=== PATIENT | female | born 1975 | race Caucasian/White ===

== ENCOUNTER → 2016-03-30 | Outpatient (REF) | payer OTHER ==
[2016-03-30 16:49] LABS: PROGESTERONE < 0.2 NG/ML
[2016-03-30 16:50] LABS: ESTRADIOL < 19.0 PG/ML; LUTEINIZING HORMONE 3.1 mIU/mL; MEAN CORPUSCULAR HEMOGLOBIN 33.8 pg (27.0-33.0); MEAN CORPUSCULAR VOLUME 99.5 fl (80.0-96.0); RED CELL DISTRIBUTION WIDTH 11.3 % (11.5-14.5); VITAMIN B12 LEVEL 1207 PG/ML (247-911)
[2016-03-30 16:51] LABS: FOLATE > 24.0 NG/ML (>5.4); FOLLICLE STIMULATING HORMONE 5.1 mIU/mL
[2016-03-30 16:52] LABS: ALBUMIN 3.9 GM/DL (3.2-5.2); ALBUMIN/GLOBULIN RATIO 1.15 (1.00-1.93); ALKALINE PHOSPHATASE 87 U/L (45-117); ALT/SGPT 31 U/L (12-78); ANION GAP 7 MEQ/L (8-16); AST/SGOT 16 U/L (15-37); BILIRUBIN,TOTAL 0.4 MG/DL (0.2-1.0); BLOOD UREA NITROGEN 10 MG/DL (7-18); CALCIUM LEVEL 8.7 MG/DL (8.5-10.1); CARBON DIOXIDE LEVEL 27 MEQ/L (21-32); CHLORIDE LEVEL 107 MEQ/L (98-107); CREATININE FOR GFR 0.65 MG/DL (0.55-1.02); GLOMERULAR FILTRATION RATE > 60.0 (>60); GLUCOSE, FASTING 81 MG/DL (70-105); POTASSIUM SERUM 4.7 MEQ/L (3.5-5.1); SODIUM LEVEL 141 MEQ/L (136-145); TOTAL PROTEIN 7.3 GM/DL (6.4-8.2)
== END | disposition home or self-care (01) ==
LOC: M SFHCLERA 10:36
PROVIDERS: ATTEND Physician Assistant
DX: Z98.890 Other specified postprocedural states (principal); E34.9 Endocrine disorder, unspecified; F41.9 Anxiety disorder, unspecified

== ENCOUNTER → 2016-06-10 | Outpatient (REF) | payer OTHER | LOC: M SFHCLERA 14:07 | PROVIDERS: ATTEND Physician Assistant | DX: J02.9 Acute pharyngitis, unspecified (principal) ==

== ENCOUNTER → 2016-07-13 | Outpatient (REF) | payer OTHER ==
[2016-07-13 19:27] LABS: ALBUMIN 3.5 GM/DL (3.2-5.2); ALBUMIN/GLOBULIN RATIO 1.09 (1.00-1.93); ALKALINE PHOSPHATASE 74 U/L (45-117); ALT/SGPT 21 U/L (12-78); ANION GAP 9 MEQ/L (8-16); AST/SGOT 12 U/L (15-37); BILIRUBIN,TOTAL 0.2 MG/DL (0.2-1.0); BLOOD UREA NITROGEN 16 MG/DL (7-18); CALCIUM LEVEL 8.3 MG/DL (8.5-10.1); CARBON DIOXIDE LEVEL 26 MEQ/L (21-32); CHLORIDE LEVEL 104 MEQ/L (98-107); CREATININE FOR GFR 0.57 MG/DL (0.55-1.02); GLOMERULAR FILTRATION RATE > 60.0 (>60); GLUCOSE, FASTING 82 MG/DL (70-105); POTASSIUM SERUM 4.4 MEQ/L (3.5-5.1); SODIUM LEVEL 139 MEQ/L (136-145); TOTAL PROTEIN 6.7 GM/DL (6.4-8.2)
== END ==
LOC: M LABNEURO 17:01
PROVIDERS: ATTEND Psychiatry & Neurology Neurology
DX: R51 Headache (principal)

== ENCOUNTER → 2016-08-06 | Outpatient (REF) | payer OTHER | LOC: M SFHCWAGY 16:25 | PROVIDERS: ATTEND Nurse Practitioner Women's Health | DX: Z12.4 Encounter for screening for malignant neoplasm of cervix (principal) ==

== ENCOUNTER → 2016-10-10 | Outpatient (REF) | payer OTHER | LOC: M SFHCLERA 16:57 | PROVIDERS: ATTEND Physician Assistant | DX: N39.0 Urinary tract infection, site not specified (principal) ==

== ENCOUNTER → 2017-08-19 | Outpatient (CLI) | payer OTHER | LOC: M LRY 08:46 | DX: R10.12 Left upper quadrant pain (principal) | CPT/HCPCS: 74018 ==

== ENCOUNTER → 2017-08-19 | Outpatient (REF) | payer OTHER ==
[2017-08-19 11:29] LABS: HEMOGLOBIN 12.2 g/dl (12.0-15.5); MEAN CORPUSCULAR HEMOGLOBIN 30.3 pg (27.0-33.0); MEAN CORPUSCULAR VOLUME 91.8 fl (80.0-96.0); PLATELET COUNT, AUTOMATED 376 10^3/uL (150-450); RED BLOOD COUNT 4.03 10^6/uL (4.00-5.40); RED CELL DISTRIBUTION WIDTH 13.8 % (11.5-14.5)
[2017-08-19 11:56] LABS: ALBUMIN 3.9 GM/DL (3.2-5.2); ALBUMIN/GLOBULIN RATIO 1.11 (1.00-1.93); ALKALINE PHOSPHATASE 120 U/L (45-117); ALT/SGPT 26 U/L (12-78); AMYLASE 73 U/L (25-115); ANION GAP 7 MEQ/L (8-16); AST/SGOT 16 U/L (7-37); BILIRUBIN,TOTAL 0.5 MG/DL (0.2-1.0); BLOOD UREA NITROGEN 13 MG/DL (7-18); CALCIUM LEVEL 8.7 MG/DL (8.5-10.1); CARBON DIOXIDE LEVEL 26 MEQ/L (21-32); CHLORIDE LEVEL 107 MEQ/L (98-107); CREATININE FOR GFR 0.68 MG/DL (0.55-1.30); GLOMERULAR FILTRATION RATE > 60.0 (>58); GLUCOSE, FASTING 79 MG/DL (70-100); LIPASE 227 U/L (73-393); POTASSIUM SERUM 4.3 MEQ/L (3.5-5.1); SODIUM LEVEL 140 MEQ/L (136-145); THYROID STIMULATING HORMONE 0.878 uIU/ML (0.358-3.740); TOTAL PROTEIN 7.4 GM/DL (6.4-8.2)
[2017-08-23 00:06] LABS: EBV VIRAL CAPSID AG IgM <36.0 U/mL (0.0-35.9)
[2017-08-23 00:06] LABS: EBV AB TO NUCLEAR ANTIGEN >600.0 U/mL (0.0-17.9); EBV VIRAL CAPSID AG IgG >600.0 U/mL (0.0-17.9)
== END ==
LOC: M SFHCLERA 08:36
DX: R10.12 Left upper quadrant pain (principal); R53.83 Other fatigue

== ENCOUNTER → 2017-08-23 | Outpatient (REF) | payer OTHER ==
[2017-08-23 19:01] LABS: IRON (FE) 59 UG/DL (50-170)
[2017-08-23 19:01] LABS: FERRITIN 6 NG/ML (8-252)
[2017-08-23 19:04] LABS: VITAMIN B12 LEVEL 346 PG/ML (247-911)
[2017-08-23 19:05] LABS: FOLATE 16.6 NG/ML (>5.4)
== END ==
LOC: M SFHCLERA 11:50
DX: E55.9 Vitamin D deficiency, unspecified (principal); Z98.890 Other specified postprocedural states

== ENCOUNTER → 2017-10-19 | Outpatient (REF) | payer OTHER | LOC: M SFHCWAGY 12:17 | DX: Z12.4 Encounter for screening for malignant neoplasm of cervix (principal) ==

== ENCOUNTER 2017-11-21 08:41 | Day surgery (SDC) | payer OTHER ==
[2017-11-21 09:26] LABS: BASO % 0.1 % (0.0-1.0); HEMOGLOBIN 11.6 g/dl (12.0-15.5); IMMATURE GRANULOCYTE % 0.4 % (0-3.0); LYMPH # 0.8 10^3/uL (1.5-4.5); LYMPH % 5.2 % (24.0-44.0); MEAN CORPUSCULAR HEMOGLOBIN 30.7 pg (27.0-33.0); MEAN CORPUSCULAR HGB CONC 34.1 g/dl (32.0-36.5); MEAN CORPUSCULAR VOLUME 89.9 fl (80.0-96.0); MONO % 6.9 % (0.0-5.0); NEUTROPHILS # 12.6 10^3/uL (1.8-7.7); NEUTROPHILS % 87.4 % (36.0-66.0); PLATELET COUNT, AUTOMATED 320 10^3/uL (150-450); RED BLOOD COUNT 3.78 10^6/uL (4.00-5.40); RED CELL DISTRIBUTION WIDTH 14.2 % (11.5-14.5); WHITE BLOOD COUNT 14.4 10^3/uL (4.0-10.0)
[2017-11-21] MEDS: ONDANSETRON 4MG/2ML VIAL (J2405) IV (09:28)
[2017-11-21] MEDS: NS 1,000 ML IV ×2 (09:28→13:45)
[2017-11-21] MEDS: MORPHINE 4 MG/ML 1ML VIAL/SYRINGE (J2270) IV ×2 (09:29→10:31)
[2017-11-21] MEDS: GASTROGRAFIN SOLUTION 30ML PO ×2 (09:39→10:16)
[2017-11-21 09:50] LABS: ALBUMIN 3.2 GM/DL (3.2-5.2); ALBUMIN/GLOBULIN RATIO 0.78 (1.00-1.93); ALKALINE PHOSPHATASE 117 U/L (45-117); ALT/SGPT 19 U/L (12-78); ANION GAP 9 MEQ/L (8-16); AST/SGOT 13 U/L (7-37); BILIRUBIN,TOTAL 0.4 MG/DL (0.2-1.0); BLOOD UREA NITROGEN 10 MG/DL (7-18); CALCIUM LEVEL 8.5 MG/DL (8.5-10.1); CARBON DIOXIDE LEVEL 22 MEQ/L (21-32); CHLORIDE LEVEL 105 MEQ/L (98-107); CREATININE FOR GFR 0.71 MG/DL (0.55-1.30); GLOMERULAR FILTRATION RATE > 60.0 (>58); GLUCOSE, FASTING 98 MG/DL (70-100); LIPASE 146 U/L (73-393); POTASSIUM SERUM 3.1 MEQ/L (3.5-5.1); SODIUM LEVEL 136 MEQ/L (136-145); TOTAL PROTEIN 7.3 GM/DL (6.4-8.2)
[2017-11-21 10:10] LABS: KETONE, URINE AUTO RFX 2+ mg/dL (NEGATIVE); LEUKOCYTE ESTERASE UR AUTO RFX NEGATIVE (NEGATIVE); MUCUS, URINE RFX MODERATE (NEGATIVE); NITRITE, URINE AUTO RFX NEGATIVE (NEGATIVE); RBC, URINE AUTO RFX 2 /HPF (0-3); SPECIFIC GRAVITY UR AUTO RFX 1.023 (1.002-1.035); SQUAM EPITHELIAL CELL UR AURFX 31 /HPF (0-6); WBC, URINE AUTO RFX 2 /HPF (0-3)
[2017-11-21] MEDS ORDERED: MORPHINE 4 MG/ML 1ML VIAL/SYRINGE (J2270) IV ×2 (10:30→15:15)
[2017-11-21] MEDS ORDERED: ISOVUE-370 76% 100ML VIAL (Q9967) As Ordered (11:17)
[2017-11-21] MEDS: PIPERACILLIN/TAZOBACTAM SOD 3.375 GM in D5W MINI-BAG PLUS 50 ML IV ×2 (13:45→20:57)
[2017-11-21] MEDS ORDERED: dexameTHASONE 4 MG/ML 1ML VIAL (J1100) As Ordered (14:25)
[2017-11-21] MEDS ORDERED: ROCURONIUM BROMIDE 50 MG/5 ML VIAL As Ordered (14:25)
[2017-11-21] MEDS ORDERED: GLYCOPYRROLATE INJ 0.2 MG/ML 2 ML VIAL As Ordered (14:25)
[2017-11-21] MEDS ORDERED: METOCLOPRAMIDE INJ 10MG/2ML VIAL (J2765) As Ordered (14:25)
[2017-11-21] MEDS ORDERED: LIDOCAINE 2% INJ 100 MG/5 ML SDV (FOR ANES.) As Ordered (14:25)
[2017-11-21] MEDS ORDERED: fentaNYL 250 MCG/5 ML INJECTION (J3010) As Ordered (14:25)
[2017-11-21] MEDS ORDERED: SUCCINYLCHOLINE 100 MG/5 ML SYRINGE (J0330) As Ordered (14:25)
[2017-11-21] MEDS ORDERED: PROPOFOL 200 MG/20 ML VIAL As Ordered (14:25)
[2017-11-21] MEDS ORDERED: MIDAZOLAM INJ 2 MG/2 ML VIAL (J2250) As Ordered (14:25)
[2017-11-21] MEDS ORDERED: NEOSTIGMINE 10 MG/10 ML VIAL (J2710) As Ordered (14:25)
[2017-11-21] MEDS ORDERED: DESFLURANE 240 ML INHALANT As Ordered (14:25)
[2017-11-21] MEDS ORDERED: ONDANSETRON 4MG/2ML VIAL (J2405) As Ordered (14:25)
[2017-11-21] MEDS: BUPIVACAINE HCL 0.25% 30 ML VIAL As Ordered (15:07)
[2017-11-21] MEDS: LIDOCAINE 1% SDV INJ 30 ML VIAL As Ordered (15:07)
[2017-11-21] MEDS ORDERED: ONDANSETRON 4MG/2ML VIAL (J2405) IV ×2 (15:15→16:30)
[2017-11-21] MEDS ORDERED: NORCO, ANEXSIA 5/325MG TABLET (HYDROcodone/ACETAMINOPHEN) PO (15:15)
[2017-11-21] MEDS ORDERED: ACETAMINOPHEN TAB 650MG DOSE (2X325MG) PO (15:15)
[2017-11-21] MEDS ORDERED: SUMAtriptan SUCCINATE 25 MG TAB PO (15:15)
[2017-11-21] MEDS ORDERED: LR 1,000 ML IV (15:30)
[2017-11-21] MEDS: NORCO, ANEXSIA 5/325MG TABLET (HYDROcodone/ACETAMINOPHEN) PO ×2 (15:33→16:54)
[2017-11-21] MEDS ORDERED: NORCO, ANEXSIA 5/325MG TABLET (HYDROcodone/ACETAMINOPHEN) As Ordered (15:35)
[2017-11-21] MEDS ORDERED: fentaNYL 100 MCG/2 ML INJECTION (J3010) IV (16:30)
[2017-11-21] MEDS: LR 1,000 ML IV (16:53)
[2017-11-21] MEDS: KETOROLAC 30 MG/ML VIAL (J1885) IV (17:54)
[2017-11-21] MEDS: SENOKOT S TAB PO (20:57)
[2017-11-21] MEDS: MONTELUKAST 10 MG TAB PO (20:57)
[2017-11-21] MEDS: TOPIRAMATE (TopAMAX) 25 MG TAB PO (20:57)
[2017-11-21] MEDS: FLUoxetine 20 MG CAP PO (21:01)
[2017-11-22] MEDS: PIPERACILLIN/TAZOBACTAM SOD 3.375 GM in D5W MINI-BAG PLUS 50 ML IV (05:33)
[2017-11-22] MEDS: KETOROLAC 30 MG/ML VIAL (J1885) IV (05:35)
[2017-11-22] MEDS: NORCO, ANEXSIA 5/325MG TABLET (HYDROcodone/ACETAMINOPHEN) PO (06:09)
[2017-11-22 07:11] LABS: BASO % 0.1 % (0.0-1.0); HEMATOCRIT 30.9 % (36.0-47.0); HEMOGLOBIN 10.5 g/dl (12.0-15.5); IMMATURE GRANULOCYTE % 0.4 % (0-3.0); LYMPH # 1.1 10^3/uL (1.5-4.5); LYMPH % 7.7 % (24.0-44.0); MEAN CORPUSCULAR HEMOGLOBIN 30.4 pg (27.0-33.0); MEAN CORPUSCULAR VOLUME 89.6 fl (80.0-96.0); MONO % 7.4 % (0.0-5.0); NEUTROPHILS # 11.8 10^3/uL (1.8-7.7); NEUTROPHILS % 84.4 % (36.0-66.0); PLATELET COUNT, AUTOMATED 278 10^3/uL (150-450); RED BLOOD COUNT 3.45 10^6/uL (4.00-5.40); RED CELL DISTRIBUTION WIDTH 14.4 % (11.5-14.5)
[2017-11-22 07:27] LABS: ANION GAP 10 MEQ/L (8-16); BLOOD UREA NITROGEN 10 MG/DL (7-18); CALCIUM LEVEL 8.4 MG/DL (8.5-10.1); CARBON DIOXIDE LEVEL 22 MEQ/L (21-32); CHLORIDE LEVEL 110 MEQ/L (98-107); CREATININE FOR GFR 0.61 MG/DL (0.55-1.30); GLOMERULAR FILTRATION RATE > 60.0 (>58); GLUCOSE, FASTING 116 MG/DL (70-100); POTASSIUM SERUM 3.5 MEQ/L (3.5-5.1); SODIUM LEVEL 142 MEQ/L (136-145)
[2017-11-22] MEDS: TOPIRAMATE (TopAMAX) 25 MG TAB PO (08:53)
[2017-11-22] MEDS: FLUoxetine 20 MG CAP PO (08:55)
[2017-11-22] MEDS: SENOKOT S TAB PO (08:55)
[2017-11-22] MEDS: ENOXAPARIN 40 MG/0.4 ML SYRINGE (J1650) SC (08:55)
== END 2017-11-22 13:20 | disposition home or self-care (01) ==
LOC: M SDC 11-22 13:20 → M ED 08:41 → M SDC 13:40 → M PED 16:05
DX: K35.89 Other acute appendicitis (principal); Z98.84 Bariatric surgery status
CPT/HCPCS: 44970

== ENCOUNTER → 2018-01-25 | Outpatient (CLI) | payer OTHER | LOC: M WHC 08:10 | DX: N92.1 Excessive and frequent menstruation with irregular cycle (principal); N83.201 Unspecified ovarian cyst, right side ==

== ENCOUNTER 2018-04-28 10:42 | Day surgery (SDC) | payer OTHER ==
[~2018-04-28] VITALS: Ht 170.2 cm; Wt 97.5 kg
[~2018-04-28 10:42] MED LIST: AMOX875T2 PO; DRIS50003 PO; ESOM1CAP5 PO; FLUC150T PO; FLUO20CA19 PO; LIDOCAINE 2% INJ 100 MG/5 ML SDV (FOR ANES.) As Ordered ONE; MAG-400T7 PO; METR-201 PO; MIDAZOLAM INJ 2 MG/2 ML VIAL (J2250) As Ordered ONE; NORCOTAB PO; ONDANSETRON 4MG/2ML VIAL (J2405) As Ordered ONE; PROPOFOL 200 MG/20 ML VIAL As Ordered ONE; SING10TA32 PO; SUMA100T2 PO; TOPA50TA8 PO; TOPI25TA10 PO; TRAZ-160 PO; VITAMIN B 2 PO; dexameTHASONE 4 MG/ML 1ML VIAL (J1100) As Ordered ONE; fentaNYL 100 MCG/2 ML INJECTION (J3010) As Ordered ONE
[2018-04-28 11:02] LABS: HEMATOCRIT 37.3 % (36.0-47.0); HEMOGLOBIN 11.9 g/dl (12.0-15.5); MEAN CORPUSCULAR HEMOGLOBIN 28.7 pg (27.0-33.0); MEAN CORPUSCULAR HGB CONC 31.9 g/dl (32.0-36.5); MEAN CORPUSCULAR VOLUME 89.9 fl (80.0-96.0); PLATELET COUNT, AUTOMATED 430 10^3/uL (150-450); RED BLOOD COUNT 4.15 10^6/uL (4.00-5.40); WHITE BLOOD COUNT 8.4 10^3/uL (4.0-10.0)
[2018-04-28] MEDS ORDERED: LR 1,000 ML IV ONE (11:15)
[2018-04-28 11:22] LABS: HCG, SERUM QUALITATIVE NEGATIVE (NEGATIVE)
[2018-04-28] MEDS ORDERED: KETOROLAC 60 MG/2 ML VIAL (J1885) As Ordered ONE (12:44)
[2018-04-28] MEDS ORDERED: fentaNYL 100 MCG/2 ML INJECTION (J3010) As Ordered ONE (13:04)
[2018-04-28] MEDS: fentaNYL 100 MCG/2 ML INJECTION (J3010) IV PRN ×4 (13:05→13:20)
[2018-04-28] MEDS ORDERED: HYDROMORPHONE HCL 0.5 MG/ 0.5 ML SYRINGE (J1170 PER 1) IV PRN (13:15)
[2018-04-28] MEDS ORDERED: LR 1,000 ML IV SCH (13:15)
[2018-04-28 14:50] VITALS: BP 117/66
[2018-04-28] MEDS ORDERED: KETOROLAC 30 MG/ML VIAL (J1885) IV SCH (19:00)
--- NOTE | 2018-04-29 11:55 | RO ---
DATE OF PROCEDURE: 04/28/2018 PREOPERATIVE DIAGNOSIS: Abnormal uterine bleeding. POSTOPERATIVE DIAGNOSIS: Abnormal uterine bleeding. PROCEDURE: Hysteroscopy with dilation and curettage. SURGEON: Nicole Eddy MD DISTRICT SCOUT EXECUTIVE: None. ANESTHESIA: General. ESTIMATED BLOOD LOSS: 5 mL. INTRAVENOUS FLUIDS: 400 mL of lactated Ringer solution. PREOPERATIVE ANTIBIOTICS: None. OPERATIVE FINDINGS: Patient with hysteroscopic findings showing normal endometrium, bilateral ostia were visualized. SPECIMEN: Endometrial curettings. DESCRIPTION OF OPERATION: After informed consent was obtained and written content was reviewed, the patient was brought to the operating room where general anesthesia was obtained. She was then placed in lithotomy position and was prepped and draped in normal sterile fashion. A time out in the operating room was then performed identifying the patient, the procedure to be performed, as well as drug allergies. A bivalved speculum was then placed revealing the cervix. The cervix was grasped with a single toothed tenaculum. The uterus was then sounded to 7.5 cm with a length of 4 cm. The uterus was then sequentially dilated using Hanks dilators. The hysteroscope was then advanced through the cervical os. The endometrium was then inspected with the above noted findings. The hysteroscope was then removed. A sharp curette was then advanced through the cervical os to the level of the fundus and the uterus was curetted in a 360 degree fashion with tissue obtained and sent to pathology. A NovaSure device was then advanced through the cervical os to the level of the fundus, at which time, I was unable to obtain the minimum width to deploy the NovaSure with a uterine width of 2.2 cm. Decision at that time was to abort the planned procedure to include NovaSure ablation. The NovaSure was then removed. The hysteroscope was then advanced through the cervical os and the uterus was inspected again with normal findings. The remainder of the instruments, including speculum and single toothed tenaculum was then removed. The patient was taken out of lithotomy position, was awakened from general anesthesia and taken to recovery in stable condition. Counts were correct. MTDD
== END 2018-04-28 15:00 | disposition home or self-care (01) ==
LOC: M SDC 10:42
PROVIDERS: ATTEND Obstetrics & Gynecology
DX: N92.6 Irregular menstruation, unspecified (principal); K21.9 Gastro-esophageal reflux disease without esophagitis; F32.9 Major depressive disorder, single episode, unspecified; F41.9 Anxiety disorder, unspecified; Z79.899 Other long term (current) drug therapy
CPT/HCPCS: 36415; 58558; 84703; 85027; 86850; 86900; 86901; 88305; J1100; J1885; J2250; J2405; J3010

== ENCOUNTER 2018-08-11 13:45 | Emergency (ER) | payer OTHER ==
[~2018-08-11] VITALS: Ht 170.2 cm; Wt 106.0 kg
[~2018-08-11 13:45] MED LIST changes: +HYDR-3715 PO; -LIDOCAINE 2% INJ 100 MG/5 ML SDV (FOR ANES.) As Ordered ONE; -METR-201 PO; +METR-265 PO; -MIDAZOLAM INJ 2 MG/2 ML VIAL (J2250) As Ordered ONE; -NORCOTAB PO; -ONDANSETRON 4MG/2ML VIAL (J2405) As Ordered ONE; -PROPOFOL 200 MG/20 ML VIAL As Ordered ONE; -TRAZ-160 PO; +TRAZ-252 PO; -dexameTHASONE 4 MG/ML 1ML VIAL (J1100) As Ordered ONE; -fentaNYL 100 MCG/2 ML INJECTION (J3010) As Ordered ONE
[2018-08-11 13:48] VITALS: BP 137/80
--- NOTE | 2018-08-11 14:25 | REP ---
Clinical: Trauma. Technique: AP, lateral views of the left forearm. Findings: No acute fracture dislocation. Skeletal structures, joint spaces, and surrounding soft tissues appear normal. No subcutaneous emphysema or foreign body. Impression: No acute fracture or dislocation. Electronically Signed by Jonas Gee MD 08/11/2018 02:16 P
--- NOTE | 2018-08-11 14:26 | REP ---
Clinical: Left elbow trauma with pain . Technique: AP, lateral, bilateral oblique views of the left elbow. Findings: No acute fracture or dislocation is appreciated. Joint spaces and surrounding soft tissues appear normal. Lateral view demonstrates normal positioning to the anterior and posterior fat pads without evidence for effusion/hemarthrosis. No subcutaneous emphysema or foreign body identified. Impression: No obvious acute fracture or dislocation appreciated. Electronically Signed by Jnoas Gee MD 08/11/2018 02:18 P
== END 2018-08-11 14:47 | disposition home or self-care (01) ==
LOC: M ED 13:45
DX: S50.12XA Contusion of left forearm, initial encounter (principal); Z79.899 Other long term (current) drug therapy; W18.30XA Fall on same level, unspecified, initial encounter; Y92.009 Unspecified place in unspecified non-institutional (private) residence as the place of occurrence of the external cause; Y93.9 Activity, unspecified; Y99.9 Unspecified external cause status

== ENCOUNTER 2018-09-21 06:06 | Emergency (ER) | payer OTHER ==
[~2018-09-21] VITALS: Ht 170.2 cm; Wt 104.5 kg
[2018-09-21 06:59] LABS: BASO % 0.2 % (0.0-1.0); EOS # 0.2 10^3/uL (0.0-0.50); EOS % 1.2 % (0.0-3.0); HEMATOCRIT 35.5 % (36.0-47.0); HEMOGLOBIN 11.4 g/dl (12.0-15.5); LYMPH # 2.7 10^3/uL (1.5-4.5); LYMPH % 18.2 % (24.0-44.0); MEAN CORPUSCULAR HEMOGLOBIN 29.2 pg (27.0-33.0); MEAN CORPUSCULAR HGB CONC 32.1 g/dl (32.0-36.5); MEAN CORPUSCULAR VOLUME 90.8 fl (80.0-96.0); MONO # 0.8 10^3/uL (0.0-0.8); MONO % 5.3 % (0.0-5.0); NEUTROPHILS # 10.9 10^3/uL (1.8-7.7); NEUTROPHILS % 74.6 % (36.0-66.0); PLATELET COUNT, AUTOMATED 381 10^3/uL (150-450); RED BLOOD COUNT 3.91 10^6/uL (4.00-5.40); WHITE BLOOD COUNT 14.6 10^3/uL (4.0-10.0)
[2018-09-21] MEDS ORDERED: MORPHINE 4 MG/ML 1ML VIAL/SYRINGE (J2270) IV ONE (07:00)
[2018-09-21] MEDS ORDERED: NS 1,000 ML IV ONE (07:00)
[2018-09-21] MEDS ORDERED: ONDANSETRON 4MG/2ML VIAL (J2405) IV ONE (07:00)
[2018-09-21 07:02] LABS: INR 0.94; PARTIAL THROMBOPLASTIN TIME 24.1 SECONDS (25.0-38.4); PROTHROMBIN TIME 12.3 SECONDS (11.8-14.0)
[2018-09-21 07:19] LABS: ALBUMIN 3.2 GM/DL (3.2-5.2); ALT/SGPT 21 U/L (12-78); AMYLASE 63 U/L (25-115); BILIRUBIN,DIRECT 0.2 MG/DL (0.0-0.2); BILIRUBIN,TOTAL 0.2 MG/DL (0.2-1.0); BLOOD UREA NITROGEN 15 MG/DL (7-18); CALCIUM LEVEL 8.2 MG/DL (8.5-10.1); CARBON DIOXIDE LEVEL 24 MEQ/L (21-32); CHLORIDE LEVEL 110 MEQ/L (98-107); CREATININE FOR GFR 0.76 MG/DL (0.55-1.30); GLOMERULAR FILTRATION RATE > 60.0 (>58); GLUCOSE, FASTING 118 MG/DL (70-100); LIPASE 179 U/L (73-393); POTASSIUM SERUM 4.1 MEQ/L (3.5-5.1); SODIUM LEVEL 142 MEQ/L (136-145); TOTAL PROTEIN 6.9 GM/DL (6.4-8.2)
[2018-09-21] MEDS ORDERED: HYDROMORPHONE HCL 0.5 MG/ 0.5 ML SYRINGE (J1170 PER 1) IV PRN (08:00)
--- NOTE | 2018-09-21 08:16 | REPVR ---
EXAM: CT Abdomen and Pelvis Without Contrast EXAM DATE/TIME: 09/21/2018 7:46 AM CLINICAL HISTORY: 43 years old, female; Abdominal pain; Epigastric; Prior surgery; Surgery date: 6+ months; Surgery type: Gastric bypass 2011 w/ HX of rupture after surgery; Additional info: Epigastric pain, S/P gastric bypass TECHNIQUE: Imaging protocol: Axial computed tomography images of the abdomen and pelvis without contrast. Coronal and sagittal reformatted images were created and reviewed. Radiation optimization: All CT scans at this facility use at least one of these dose optimization techniques: automated exposure control; mA and/or kV adjustment per patient size (includes targeted exams where dose is matched to clinical indication); or iterative reconstruction. COMPARISON: CT ABD/PEL W/IV ORAL CONTRAS 11/21/2017 11:40 AM FINDINGS: Liver: Normal. No mass. Gallbladder and bile ducts: Normal. No calcified stones. No ductal dilation. Pancreas: Normal. No ductal dilation. Spleen: Normal. No splenomegaly. Adrenals: Normal. No mass. Kidneys and ureters: There is a 1-2 mm left upper renal pole stones. There is no ureteral stones or hydronephrosis. Stomach and bowel: The patient is status post gastric bypass is grossly intact anastomoses. There is apparent thickening of the intervening between the proximal and distal anastomoses. Appendix: The appendix is not clearly visualized evaluation of the lower abdomen is limited due to motion. Intraperitoneal space: Normal. No free air. No significant fluid collection. Vasculature: Normal. No abdominal aortic aneurysm. Lymph nodes: There is shotty lymph nodes. Bladder: Unremarkable as visualized. Reproductive: Unremarkable as visualized. Bones/joints: No acute fracture. No dislocation. Soft tissues: Unremarkable. IMPRESSION: 1. Status post gastric bypass with apparent thickening of the intervening bowel between the proximal and distal anastomosis. Correlate clinically for infectious/inflammatory process. 2. 1-2 mm nonobstructing left upper pole stone. 3. Appendix not visualized and evaluation for subtle indirect signs of appendicitis is limited due to motion. Correlate with patients symptoms and clinical history. Electronically signed by: Ashutosh Tran On 09/21/2018 08:16:36 AM
[2018-09-21] MEDS: GASTROGRAFIN SOLUTION 30ML PO SCH ×2 (08:45→09:15)
[2018-09-21] MEDS ORDERED: ISOVUE-370 76% 100ML VIAL (Q9967) As Ordered ONE (10:20)
--- NOTE | 2018-09-21 11:20 | REP ---
Clinical: Epigastric pain. Technique: Axial contrast enhanced images from the lung bases to the pubic symphysis with coronal and sagittal re-formations using oral (per protocol) and 100 ml Isovue 370 intravenous contrast material. Comparison: 11/21/2017 Findings: Lung bases demonstrate minimal dependent changes. Liver, spleen, pancreas, bilateral adrenal glands and kidneys are normal. The gallbladder is moderately distended but without further signs to suggest acute cholecystitis by CT. Evaluation of the enteric system demonstrates evidence of prior gastric bypass surgery without obstruction or obvious acute inflammatory process. Pelvis demonstrates normal bladder and age-appropriate uterus/adnexa. Abdominal aorta without aneurysm or dissection. Musculoskeletal structures are intact. Impression: 1. Moderately distended gallbladder without further signs to suggest acute cholecystitis. 2. Evidence of prior gastric bypass surgery and appendectomy. 3. No obvious acute abdominopelvic pathology. Specifically, no ascites, focal inflammatory stranding, or adenopathy. Electronically Signed by Jonas Gee MD 09/21/2018 11:11 A
[2018-09-21] MEDS ORDERED: CARA1TAB6 PO ×2 (11:27→11:29)
[2018-09-21] MEDS ORDERED: ONDA4TAB6 PO ×2 (11:27→11:29)
[2018-09-21 11:37] VITALS: BP 93/55
== END 2018-09-21 11:39 | disposition home or self-care (01) ==
LOC: M ED 06:06
DX: K82.8 Other specified diseases of gallbladder (principal); Z98.84 Bariatric surgery status; G43.909 Migraine, unspecified, not intractable, without status migrainosus; K21.9 Gastro-esophageal reflux disease without esophagitis; F41.9 Anxiety disorder, unspecified; F32.9 Major depressive disorder, single episode, unspecified; Z79.899 Other long term (current) drug therapy
CPT/HCPCS: 74176; 74177; 80048; 80076; 82150; 83605; 83690; 84702; 85025; 85610; 85730; 96374; 96375; 99284; J1170; J2270; J2405; Q9963; Q9967

== ENCOUNTER → 2018-10-20 | Outpatient (CLI) | payer OTHER ==
[~2018-10-20] MED LIST changes: +CARA1TAB6 PO; +ONDA4TAB6 PO
--- NOTE | 2018-10-20 13:00 | REP ---
BILATERAL SCREENING DIGITAL MAMMOGRAM WITH 3D TOMOSYNTHESIS: There are no palpable abnormalities or other breast complaints. The the patient states she had a clinical breast examination 11/07 18. The the patient states she performs self-breast examinations 12 times per year. The Tyrer-Cuzick Score is: 19.6% . The study is a baseline study, there are no comparisons. There are scattered areas of fibroglandular density. There is no dominant mass, micro calcific cluster or architectural distortion that would indicate malignancy. There are no additional findings on 3D tomosynthesiss. There is no change from the prior study. Impression: BIRADS/ACR category 1 mammogram. Negative. Recommendation: Routine annual screening mammography. For women with a Tyrer-Cuzick score greater than 20 , adjunctive annual breast MRI in addition to screening mammography is recommended. These can be performed at alternating six month intervals. This mammogram was interpreted with the aid of a FDA approved computer-aided detection system. A. Negative mammogram reports should not delay biopsy if a dominant or clinically suspicious mass is present. B. Not all breast cancers are identified by mammography or tomosynthesis. C. Adenosis and dense breasts may obscure an underlying neoplasm. Patient letter M1. Electronically Signed by Elias Pinto MD 10/20/2018 12:52 P
== END ==
LOC: M WHC 10:34
PROVIDERS: ATTEND Nurse Practitioner Women's Health
DX: Z12.31 Encounter for screening mammogram for malignant neoplasm of breast (principal)

== ENCOUNTER → 2018-10-25 | Outpatient (REF) | payer OTHER | LOC: M SFHCLERA 15:16 | PROVIDERS: ATTEND Family Medicine | DX: E55.9 Vitamin D deficiency, unspecified (principal) ==

== ENCOUNTER → 2018-11-29 | Outpatient (REF) | payer OTHER ==
[~2018-11-29] MED LIST changes: +ASHL1TAB PO; +B-1225002 SL; +BOTO200I INJ; +BRIN1TAB PO; +BUTACAP78 PO; +D200CAP2 PO; +DICY20TA11 PO; +ESOM40CA35 PO
[2018-11-29 17:01] LABS: BASO % 0.4 % (0.0-1.0); EOS # 0.1 10^3/uL (0.0-0.5); EOS % 1.4 % (0.0-3.0); HEMATOCRIT 36.3 % (36.0-47.0); HEMOGLOBIN 11.3 g/dl (12.0-15.5); LYMPH % 23.3 % (24.0-44.0); MEAN CORPUSCULAR HEMOGLOBIN 28.2 pg (27.0-33.0); MEAN CORPUSCULAR HGB CONC 31.1 g/dl (32.0-36.5); MEAN CORPUSCULAR VOLUME 90.5 fl (80.0-96.0); MONO # 0.8 10^3/uL (0.0-0.8); MONO % 9.6 % (0.0-5.0); NEUTROPHILS # 5.5 10^3/uL (1.5-8.5); NEUTROPHILS % 64.9 % (36.0-66.0); PLATELET COUNT, AUTOMATED 460 10^3/uL (150-450); RED BLOOD COUNT 4.01 10^6/uL (4.00-5.40); WHITE BLOOD COUNT 8.5 10^3/uL (4.0-10.0)
[2018-11-29 17:12] LABS: ALBUMIN 3.5 GM/DL (3.2-5.2); ALT/SGPT 24 U/L (12-78); BILIRUBIN,TOTAL 0.3 MG/DL (0.2-1.0); BLOOD UREA NITROGEN 11 MG/DL (7-18); CALCIUM LEVEL 9.1 MG/DL (8.5-10.1); CARBON DIOXIDE LEVEL 21 MEQ/L (21-32); CHLORIDE LEVEL 110 MEQ/L (98-107); CREATININE FOR GFR 0.82 MG/DL (0.55-1.30); FERRITIN 7 NG/ML (8-252); GLOMERULAR FILTRATION RATE > 60.0 (>58); GLUCOSE, FASTING 93 MG/DL (70-100); IRON (FE) 25 UG/DL (50-170); LIPASE 131 U/L (73-393); PERCENT SATURATION 5.3 % (13.2-45.0); POTASSIUM SERUM 4.5 MEQ/L (3.5-5.1); SODIUM LEVEL 140 MEQ/L (136-145); TOTAL IRON BINDING CAPACITY 471 UG/DL (250-450); TOTAL PROTEIN 7.2 GM/DL (6.4-8.2)
== END ==
LOC: M SFHCLERA 11:16
PROVIDERS: ATTEND Family Medicine
DX: D64.9 Anemia, unspecified (principal); R10.84 Generalized abdominal pain

== ENCOUNTER → 2018-12-01 | Outpatient (REF) | payer OTHER ==
[~2018-12-01] MED LIST changes: -ASHL1TAB PO; -B-1225002 SL; -BOTO200I INJ; -BRIN1TAB PO; -BUTACAP78 PO; -D200CAP2 PO; -DICY20TA11 PO; -ESOM40CA35 PO
== END ==
LOC: M SFHCLERA 15:16
PROVIDERS: ATTEND Family Medicine
DX: R10.84 Generalized abdominal pain (principal)

== ENCOUNTER → 2018-12-07 | Outpatient (CLI) | payer OTHER ==
--- NOTE | 2018-12-07 15:10 | REP ---
HIDA SCAN WITH GALLBLADDER EJECTION FRACTION: Following the intravenous administration of 6.6 millicuries technetium 99m Mebrofenin, multiple images of the right upper quadrant are performed every 5 minutes for a period of 1 hour. The gallbladder is visualized at approximately 15 minutes post injection and there is biliary to bowel transit also seen at that time. There is no scintigraphic evidence of cholecystitis. At the 1-hour bibiana 8 ounces of Ensure Enlive is ingested and further imaging performed for 1 hour. Gallbladder activity is measured. The gallbladder ejection fraction is calculated to be 73%, which is normal. IMPRESSION: Normal gallbladder ejection fraction. Electronically Signed by Elias Prado MD 12/07/2018 05:52 P
== END ==
LOC: M RAD 07:21
PROVIDERS: ATTEND Family Medicine
DX: K82.9 Disease of gallbladder, unspecified (principal); R10.9 Unspecified abdominal pain

== ENCOUNTER → 2019-01-15 | Outpatient (REF) | payer OTHER ==
[~2019-01-15] MED LIST changes: +ASHL1TAB PO; +BOTO200I INJ; +BRIN1TAB PO; +BUTACAP78 PO; +D200CAP2 PO; +DICY20TA11 PO; +ESOM40CA35 PO
[2019-01-15 12:25] LABS: HEMATOCRIT 36.1 % (36.0-47.0); HEMOGLOBIN 11.3 g/dl (12.0-15.5)
[2019-01-17 00:07] LABS: Lyme Disease IgG/IgM Antibodie <0.91 ISR (0.00-0.90); Lyme Disease IgM Ab Quantitati <0.80 index (0.00-0.79)
== END ==
LOC: M SFHCLERA 07:38
PROVIDERS: ATTEND Family Medicine
DX: R53.83 Other fatigue (principal)

== ENCOUNTER → 2019-02-09 | Outpatient (CLI) | payer OTHER ==
[2019-02-09 07:29] LABS: HEMATOCRIT 34.8 % (36.0-47.0); HEMOGLOBIN 10.6 g/dl (12.0-15.5)
[2019-02-09 07:52] LABS: CK-MB VALUE MASS < 1.0 NG/ML (<3.6); CPK CREATINE PHOSPHOKINASE 64 U/L (26-192); MB/CK RELATIVE INDEX 1.56 (< OR =4)
[2019-02-09 12:19] LABS: CORTISOL AM 18.8 UG/DL (4.3-22.4)
== END ==
LOC: M LAB 06:59
PROVIDERS: ATTEND Family Medicine
DX: R53.83 Other fatigue (principal)

== ENCOUNTER 2019-02-27 13:06 | Day surgery (SDC) | payer OTHER ==
[~2019-02-27] VITALS: Ht 170.2 cm; Wt 104.3 kg
[~2019-02-27 13:06] MED LIST changes: +B-1225002 SL; +NS 1,000 ML IV ONE
[2019-02-27] MEDS ORDERED: LIDOCAINE 2% INJ 100 MG/5 ML SDV (FOR ANES.) As Ordered ONE (14:41)
[2019-02-27] MEDS ORDERED: PROPOFOL 200 MG/20 ML VIAL As Ordered ONE ×2 (14:41→14:44)
[2019-02-27 15:30] VITALS: BP 132/79
--- NOTE | 2019-02-27 15:37 | ROOR ---
Patient Name: Luciana Canseco Procedure Date: 02/27/2019 2:55 PM Date of : 1975 Age: 43 Room: [facility] Gender: Female Note Status: Finalized Procedure: Upper GI endoscopy Indications: Epigastric abdominal pain, Iron deficiency anemia Providers: Chema Perry MD Referring MD: Elias COHEN MD Requesting Provider: Medicines: Monitored Anesthesia Care Complications: No immediate complications. Procedure: Pre-Anesthesia Assessment: - Prior to the procedure, a History and Physical was performed, and patient medications and allergies were reviewed. The patient is competent. The risks and benefits of the procedure and the sedation options and risks were discussed with the patient. All questions were answered and informed consent was obtained. Patient identification and proposed procedure were verified by the physician, the nurse and the anesthesiologist in the procedure room. Mental Status Examination: normal. Airway Examination: normal oropharyngeal airway and neck mobility. Respiratory Examination: clear to auscultation. CV Examination: normal. Prophylactic Antibiotics: The patient does not require prophylactic antibiotics. Prior Anticoagulants: The patient has taken no previous anticoagulant or antiplatelet agents. ASA Grade Assessment: II - A patient with mild systemic disease. After reviewing the risks and benefits, the patient was deemed in satisfactory condition to undergo the procedure. The anesthesia plan was to use monitored anesthesia care (MAC). Immediately prior to administration of medications, the patient was re-assessed for adequacy to receive sedatives. The heart rate, respiratory rate, oxygen saturations, blood pressure, adequacy of pulmonary ventilation, and response to care were monitored throughout the procedure. The physical status of the patient was re-assessed after the procedure. The Endoscope was introduced through the mouth, and advanced to the second part of duodenum. The upper GI endoscopy was accomplished without difficulty. The patient tolerated the procedure well. Findings: The examined esophagus was normal. Evidence of a gastric bypass was found. A gastric pouch with a medium size was found. The gastrojejunal anastomosis was characterized by erythema, inflammation and ulceration. This was traversed. The jejunojejunal anastomosis was characterized by healthy appearing mucosa. The wrbjgfxr-jg-ydbnqne limb was not examined as it could not be reached. Two biopsies were obtained at the anastomosis with cold forceps for histology. Verification of patient identification for the specimen was done by the physician and nurse using the patient's name, date and medical record number. Estimated blood loss was minimal. Normal mucosa was found in the jejunum. Biopsies for histology were taken with a cold forceps for evaluation of celiac disease. Impression: - Normal esophagus. - Gastric bypass with a medium-sized pouch. Gastrojejunal anastomosis characterized by erythema, inflammation and ulceration. - Normal mucosa was found in the jejunum. Biopsied. - Two biopsies were obtained at the anastomosis. Recommendation: - Patient has a contact number available for emergencies. The signs and symptoms of potential delayed complications were discussed with the patient. Return to normal activities tomorrow. Written discharge instructions were provided to the patient. - Resume previous diet. - Continue present medications. - Await pathology results. - Check hemoglobin and hematocrit and iron studies in 3 months. - Telephone GI clinic for pathology results in 2 weeks. - Return to GI clinic in 3 months. - Return to primary care physician. Chema Perry MD Chema Perry MD 02/27/2019 3:36:37 PM Electronically signed by Chema Perry MD Number of Addenda: 0 Note Initiated On: 02/27/2019 2:55 PM Estimated Blood Loss: Estimated blood loss was minimal.
== END 2019-02-27 16:00 | disposition home or self-care (01) ==
LOC: M OPP 13:06
PROVIDERS: ATTEND Internal Medicine Gastroenterology
DX: K28.9 Gastrojejunal ulcer, unspecified as acute or chronic, without hemorrhage or perforation (principal); Z98.84 Bariatric surgery status; R10.13 Epigastric pain; D50.9 Iron deficiency anemia, unspecified; Z79.899 Other long term (current) drug therapy; Z80.3 Family history of malignant neoplasm of breast

== ENCOUNTER → 2019-08-07 | Outpatient (CLI) | payer OTHER ==
[~2019-08-07] MED LIST changes: -FLUO20CA19 PO; +FLUO20CA22 PO; +HYDR50TA70 PO; +IMIT100T PO; -NS 1,000 ML IV ONE
[2019-08-07 14:17] LABS: BASO % 0.2 % (0.0-1.0); EOS # 0.2 10^3/uL (0.0-0.5); EOS % 1.6 % (0.0-3.0); HEMATOCRIT 39.3 % (36.0-47.0); HEMOGLOBIN 12.9 g/dl (12.0-15.5); LYMPH # 2.6 10^3/uL (1.5-5.0); LYMPH % 26.8 % (24.0-44.0); MEAN CORPUSCULAR HEMOGLOBIN 32.3 pg (27.0-33.0); MEAN CORPUSCULAR HGB CONC 32.8 g/dl (32.0-36.5); MEAN CORPUSCULAR VOLUME 98.3 fl (80.0-96.0); MONO # 0.6 10^3/uL (0.0-0.8); MONO % 5.7 % (0.0-5.0); NEUTROPHILS # 6.3 10^3/uL (1.5-8.5); NEUTROPHILS % 65.3 % (36.0-66.0); PLATELET COUNT, AUTOMATED 377 10^3/uL (150-450); WHITE BLOOD COUNT 9.6 10^3/uL (4.0-10.0)
== END ==
LOC: M LAB 13:30
PROVIDERS: ATTEND Internal Medicine Hematology
DX: E53.8 Deficiency of other specified B group vitamins (principal)

== ENCOUNTER → 2019-08-14 | Outpatient (CLI) | payer OTHER ==
--- NOTE | 2019-08-15 03:00 | REP ---
Clinical: Right upper quadrant pain. Technique: Real time noonan scale ultrasound examination using curved array transducer. Findings: Liver and visualized pancreas are normal in contour, size, echogenicity without focal hepatic or pancreatic lesion identified. Gallbladder demonstrates small amount of layering sludge without wall thickening or pericholecystic fluid. No biliary ductal dilatation is appreciated and the common bile duct measures 5.4 mm diameter. The right kidney is normal in reniform shape without hydronephrosis and measures 10.8 x 5.1 x 4.5 cm. No ascites in the visualized right upper quadrant. Impression: Small amount of layering sludge in the gallbladder. Otherwise normal limited abdominal ultrasound. Electronically Signed by Jonas Gee MD 08/15/2019 02:51 A
== END ==
LOC: M LRY 10:15
PROVIDERS: ATTEND Internal Medicine Gastroenterology
DX: R10.11 Right upper quadrant pain (principal)

== ENCOUNTER → 2020-02-12 | Outpatient (CLI) | payer OTHER ==
[~2020-02-12] MED LIST changes: +BUSP10TA PO; +D31000TA2 PO; +FAMO1TAB25 PO; +GABA-1171 PO
--- NOTE | 2020-02-12 12:43 | REPMRS ---
Patient History The patient states she had a clinical breast exam in 2019. Family history of breast cancer at age 50 or over and endometrial cancer at age 50 or over in maternal grandmother. Taking hormonal contraceptives for 3 years. 3D TOMOSYNTHESIS WAS PERFORMED. The David Lucas lifetime risk for breast cancer is 19.3%. Volpara breast density a. Digital Woman Screen Mammo: February 12, 2020 - Exam #: [id number] Bilateral CC and MLO view(s) were taken. Technologist: Eboni Bella, Technologist Prior study comparison: October 20, 2018, bilateral digital woman screen mammo performed at [facility]. FINDINGS: There are scattered fibroglandular densities. There has been no change in the appearance of the mammogram from the prior studies. There is a mild amount of residual fibroglandular tissue which is fairly symmetric. There is no interval development of dominant mass, architectural distortion, or clustered microcalcification suggestive of malignancy. Assessment: BI-RADS/ACR category 1 mammogram. Negative Mammogram. Recommendation Routine screening mammogram in 1 year (for women over age 40). This mammogram was interpreted with the aid of an FDA-approved computer-aided dectection system. Electronically Signed By: Elias Prado MD 02/12/20 [id number]
== END ==
LOC: M WHC 11:20
PROVIDERS: ATTEND Nurse Practitioner Women's Health
DX: Z12.31 Encounter for screening mammogram for malignant neoplasm of breast (principal)

== ENCOUNTER → 2020-03-12 | Outpatient (CLI) | payer OTHER ==
[2020-03-12 16:44] LABS: FOLLICLE STIMULATING HORMONE 5.3 mIU/mL; LUTEINIZING HORMONE 3.9 mIU/mL
== END ==
LOC: M LAB 15:40
PROVIDERS: ATTEND Nurse Practitioner Women's Health
DX: R23.2 Flushing (principal); N91.2 Amenorrhea, unspecified

== ENCOUNTER 2020-06-18 16:05 | Emergency (ER) | payer OTHER ==
[~2020-06-18] VITALS: Ht 170.2 cm; Wt 143.6 kg
[~2020-06-18 16:05] MED LIST changes: +PANT20TA6 PO
[2020-06-18 17:20] LABS: BASO % 0.4 % (0.0-1.0); EOS # 0.2 10^3/uL (0.0-0.5); EOS % 2.5 % (0.0-3.0); HEMATOCRIT 39.9 % (36.0-47.0); HEMOGLOBIN 12.8 g/dl (12.0-15.5); LYMPH # 2.1 10^3/uL (1.5-5.0); LYMPH % 26.9 % (24.0-44.0); MEAN CORPUSCULAR HEMOGLOBIN 29.9 pg (27.0-33.0); MEAN CORPUSCULAR HGB CONC 32.1 g/dl (32.0-36.5); MEAN CORPUSCULAR VOLUME 93.2 fl (80.0-96.0); MONO # 0.8 10^3/uL (0.0-0.8); MONO % 10.5 % (2.0-8.0); NEUTROPHILS # 4.7 10^3/uL (1.5-8.5); NEUTROPHILS % 59.3 % (36.0-66.0); PLATELET COUNT, AUTOMATED 400 10^3/uL (150-450); RED BLOOD COUNT 4.28 10^6/uL (4.00-5.40); WHITE BLOOD COUNT 7.9 10^3/uL (4.0-10.0)
[2020-06-18 17:53] LABS: ALBUMIN 3.7 GM/DL (3.2-5.2); ALT/SGPT 19 U/L (12-78); BILIRUBIN,DIRECT < 0.1 MG/DL (0.0-0.2); BILIRUBIN,TOTAL 0.2 MG/DL (0.2-1.0); LIPASE 218 U/L (73-393); TOTAL PROTEIN 7.7 GM/DL (6.4-8.2)
[2020-06-18] MEDS ORDERED: ISOVUE-370 76% 100ML VIAL As Ordered ONE (18:12)
[2020-06-18 18:20] VITALS: BP 149/69
--- NOTE | 2020-06-18 18:30 | REPVR ---
PROCEDURE INFORMATION: Exam: CT Abdomen And Pelvis With Contrast Exam date and time: 06/18/2020 6:17 PM Age: 44 years old Clinical indication: Abdominal pain; Localized; Left lower quadrant (llq); Additional info: Llq pain, HX diverticulitis, await bun/cr TECHNIQUE: Imaging protocol: Computed tomography of the abdomen and pelvis with contrast. Radiation optimization: All CT scans at this facility use at least one of these dose optimization techniques: automated exposure control; mA and/or kV adjustment per patient size (includes targeted exams where dose is matched to clinical indication); or iterative reconstruction. Contrast material: ISOVUE 370; Contrast volume: 100 ml; Contrast route: INTRAVENOUS (IV); COMPARISON: CT ABD/PEL W/IV ORAL CONTRAS 09/21/2018 10:23 AM FINDINGS: Liver: Normal. No mass. Gallbladder and bile ducts: Normal. No calcified stones. No ductal dilation. Pancreas: Normal. No ductal dilation. Spleen: Normal. No splenomegaly. Adrenal glands: Normal. No mass. Kidneys and ureters: Normal. No hydronephrosis. Stomach and bowel: This patient is status post gastric bypass surgery. Appendix: No evidence of appendicitis. Intraperitoneal space: Unremarkable. No free air. No significant fluid collection. Vasculature: Unremarkable. No abdominal aortic aneurysm. Lymph nodes: Unremarkable. No enlarged lymph nodes. Urinary bladder: Unremarkable as visualized. Reproductive: Unremarkable as visualized. Bones/joints: Unremarkable. No acute fracture. Soft tissues: Unremarkable. IMPRESSION: 1. This patient is status post gastric bypass surgery. 2. No acute findings. Electronically signed by: Curt Grossman On 06/18/2020 18:30:01 PM
== END 2020-06-18 18:47 | disposition home or self-care (01) ==
LOC: M ED 16:05
DX: R79.9 Abnormal finding of blood chemistry, unspecified (principal); K58.9 Irritable bowel syndrome, unspecified; G43.909 Migraine, unspecified, not intractable, without status migrainosus; Z98.84 Bariatric surgery status; K21.9 Gastro-esophageal reflux disease without esophagitis; F41.9 Anxiety disorder, unspecified; F32.9 Major depressive disorder, single episode, unspecified; Z79.899 Other long term (current) drug therapy; Z79.3 Long term (current) use of hormonal contraceptives
CPT/HCPCS: 74177; 80047; 80076; 81001; 83690; 85025; 87086; 99284; Q9967

== ENCOUNTER → 2020-06-28 | Outpatient (REF) | payer OTHER | LOC: M WUC 19:10 | PROVIDERS: ATTEND Physician Assistant | DX: N39.0 Urinary tract infection, site not specified (principal) ==

== ENCOUNTER → 2020-06-28 | Outpatient (CLI) | payer OTHER ==
[2020-06-28 16:17] LABS: BASO % 0.3 % (0.0-1.0); EOS # 0.1 10^3/uL (0.0-0.5); EOS % 1.3 % (0.0-3.0); HEMATOCRIT 37.2 % (36.0-47.0); HEMOGLOBIN 12.2 g/dl (12.0-15.5); LYMPH # 2.3 10^3/uL (1.5-5.0); LYMPH % 21.8 % (24.0-44.0); MEAN CORPUSCULAR HEMOGLOBIN 29.9 pg (27.0-33.0); MEAN CORPUSCULAR HGB CONC 32.8 g/dl (32.0-36.5); MEAN CORPUSCULAR VOLUME 91.2 fl (80.0-96.0); MONO % 9.2 % (2.0-8.0); NEUTROPHILS % 66.9 % (36.0-66.0); PLATELET COUNT, AUTOMATED 393 10^3/uL (150-450); RED BLOOD COUNT 4.08 10^6/uL (4.00-5.40); WHITE BLOOD COUNT 10.5 10^3/uL (4.0-10.0)
[2020-06-28 16:55] LABS: ALBUMIN 3.5 GM/DL (3.2-5.2); ALT/SGPT 22 U/L (12-78); BILIRUBIN,TOTAL 0.5 MG/DL (0.2-1.0); BLOOD UREA NITROGEN 14 MG/DL (7-18); CALCIUM LEVEL 8.3 MG/DL (8.5-10.1); CARBON DIOXIDE LEVEL 25 MEQ/L (21-32); CHLORIDE LEVEL 110 MEQ/L (98-107); CREATININE FOR GFR 0.69 MG/DL (0.55-1.30); GLOMERULAR FILTRATION RATE > 60.0 (>58); GLUCOSE, FASTING 79 MG/DL (70-100); LIPASE 189 U/L (73-393); POTASSIUM SERUM 4.1 MEQ/L (3.5-5.1); SODIUM LEVEL 140 MEQ/L (136-145); TOTAL PROTEIN 7.2 GM/DL (6.4-8.2)
--- NOTE | 2020-06-28 17:23 | REP ---
INDICATION: GENERALIZED ABDOMINAL PAIN, STAT LAB 1ST THEN XR. COMPARISON: 08/19/2017. TECHNIQUE: Supine and erect views of the abdomen, frontal view chest. FINDINGS: There is no free air. There is no evidence of bowel obstruction. No significantly dilated bowel loops are seen. No abnormal calcifications are seen. No infiltrate is seen in either lung. The heart and mediastinum are within normal limits. IMPRESSION: Negative abdominal series. <Electronically signed by Elias Prado > 06/28/20 [id number]
== END ==
LOC: M LAB 15:39
PROVIDERS: ATTEND Physician Assistant
DX: R10.9 Unspecified abdominal pain (principal)

== ENCOUNTER → 2020-07-03 | Outpatient (CLI) | payer OTHER ==
--- NOTE | 2020-07-03 16:45 | REP ---
INDICATION: CHRONIC RHINITIS. COMPARISON: None. TECHNIQUE: Axial CT images with multiplanar reformations. FINDINGS: The paranasal sinuses and mastoid air cells are clear. There is a mild leftward nasal septal deviation and shallow left nasal spur. Visualized dentition is unremarkable. IMPRESSION: Clear sinuses. No imaging correlate of rhinitis. <Electronically signed by Ian Mcgee > 07/03/20 [id number]
== END ==
LOC: M RAD 16:24
PROVIDERS: ATTEND Specialist
DX: J31.0 Chronic rhinitis (principal); J34.2 Deviated nasal septum

== ENCOUNTER → 2020-07-13 | Outpatient (REF) | payer OTHER | LOC: M LAB REF 19:43 | PROVIDERS: ATTEND Physician Assistant | DX: N39.0 Urinary tract infection, site not specified (principal) ==

== ENCOUNTER → 2020-07-24 | Outpatient (REF) | payer OTHER | LOC: M SFHCLERA 16:11 | PROVIDERS: ATTEND Family Medicine | DX: R10.9 Unspecified abdominal pain (principal) ==

== ENCOUNTER → 2020-08-07 | Outpatient (CLI) | payer OTHER ==
--- NOTE | 2020-08-08 02:24 | REP ---
INDICATION: FLANK PAIN,UNSPECIFIED ABDOMINAL PAIN COMPARISON: 06/18/2020 TECHNIQUE: Axial noncontrast images from the lung bases to the pubic symphysis with coronal and sagittal reformations. This CT examination was performed using the following dose reduction techniques: Automated exposure control, adjustment of mA and/or kv according to the patient's size, and use of iterative reconstruction technique. FINDINGS: Lung bases are clear. Visualized heart and pericardium normal. Liver, spleen, pancreas, gallbladder, bilateral adrenal glands are normal. Evaluation of the kidneys demonstrates 1 mm nonobstructing left renal calculus. No perinephric stranding, hydroureteronephrosis, or obstructing ureteral calculus identified. The enteric system is unremarkable and without obstruction or acute inflammatory process. Normal terminal ileum and cecum identified in the right lower quadrant. Evidence for prior gastric bypass surgery. Pelvis demonstrates normal bladder and age-appropriate uterus/adnexa. No ascites. No free air. No adenopathy. No focal inflammatory stranding. Abdominal aorta without aneurysm. Musculoskeletal structures are intact and without acute osseous abnormality. IMPRESSION: No acute abdominopelvic pathology appreciated. 1 mm nonobstructing left renal calculus. <Electronically signed by Jonas Gee > 08/08/20 [id number]
== END ==
LOC: M RAD 17:39
PROVIDERS: ATTEND Family Medicine
DX: R10.9 Unspecified abdominal pain (principal); N20.0 Calculus of kidney

== ENCOUNTER → 2020-11-17 | Outpatient (CLI) | payer OTHER ==
[~2020-11-17] MED LIST changes: +FAMO10TA50 PO; -FAMO1TAB25 PO
[2020-11-17 11:21] LABS: BASO % 0.3 % (0.0-1.0); EOS # 0.1 10^3/uL (0.0-0.5); EOS % 1.9 % (0.0-3.0); HEMATOCRIT 30.7 % (36.0-47.0); HEMOGLOBIN 9.6 g/dl (12.0-15.5); LYMPH # 1.2 10^3/uL (1.5-5.0); MEAN CORPUSCULAR HEMOGLOBIN 27.3 pg (27.0-33.0); MEAN CORPUSCULAR HGB CONC 31.3 g/dl (32.0-36.5); MEAN CORPUSCULAR VOLUME 87.2 fl (80.0-96.0); MONO # 0.5 10^3/uL (0.0-0.8); MONO % 7.3 % (2.0-8.0); NEUTROPHILS % 72.9 % (36.0-66.0); PLATELET COUNT, AUTOMATED 401 10^3/uL (150-450); RED BLOOD COUNT 3.52 10^6/uL (4.00-5.40); WHITE BLOOD COUNT 6.8 10^3/uL (4.0-10.0)
[2020-11-17 11:50] LABS: ALBUMIN 3.1 GM/DL (3.2-5.2); ALT/SGPT 31 U/L (12-78); BILIRUBIN,TOTAL 0.4 MG/DL (0.2-1.0); BLOOD UREA NITROGEN 10 MG/DL (7-18); CALCIUM LEVEL 8.7 MG/DL (8.5-10.1); CARBON DIOXIDE LEVEL 25 MEQ/L (21-32); CHLORIDE LEVEL 110 MEQ/L (98-107); CREATININE FOR GFR 0.64 MG/DL (0.55-1.30); GLOMERULAR FILTRATION RATE > 60.0 (>58); GLUCOSE, FASTING 85 MG/DL (70-100); IRON (FE) 35 UG/DL (50-170); POTASSIUM SERUM 4.1 MEQ/L (3.5-5.1); SODIUM LEVEL 139 MEQ/L (136-145); TOTAL PROTEIN 6.5 GM/DL (6.4-8.2)
[2020-11-17 11:51] LABS: FERRITIN 8 NG/ML (8-252); PERCENT SATURATION 7.3 % (13.2-45.0); TOTAL IRON BINDING CAPACITY 477 UG/DL (250-450)
[2020-11-17 11:55] LABS: FOLATE 22.3 NG/ML (>5.4); TOTAL 25(OH) VITAMIN D 28.8 NG/ML (30.0-100.0); VITAMIN B12 LEVEL 291 PG/ML (247-911)
== END ==
LOC: M LAB 10:20
PROVIDERS: ATTEND Family Medicine
DX: Z98.84 Bariatric surgery status (principal)

== ENCOUNTER → 2021-01-09 | Outpatient (CLI) | payer OTHER ==
[~2021-01-09] MED LIST changes: +BRIN10TA4 PO; +TROK1CAP5 PO
--- NOTE | 2021-01-11 08:19 | REP ---
INDICATION: OTHER SPECIFIED COUGH COMPARISON: 06/28/2020 TECHNIQUE: PA and lateral. FINDINGS: The mediastinum and cardiac silhouette are normal. The lung kenny are clear and without acute consolidation, effusion, or pneumothorax. The skeletal structures are intact and normal. IMPRESSION: No acute cardiopulmonary process. <Electronically signed by Jonas Gee > 01/11/21 [id number]
== END ==
LOC: M RAD 14:54
PROVIDERS: ATTEND Family Medicine
DX: R05.8 Other specified cough (principal)

== ENCOUNTER → 2021-01-19 | Outpatient (CLI) | payer OTHER ==
--- NOTE | 2021-01-19 11:55 | PFTRPT ---
Height: 67.00 Inches Weight: 225.00 Lbs BSA: 2.13 Diagnosis: R05.8 DATE: 01/19/2021 ORDERING PHYSICIAN: ZEFERINO ALVES, Pre and post bronchodilator studies have excellent technical quality. Forced vital capacity is normal. FEV1 is in proportion. Obstructive index is therefore normal. Expiratory limit of the flow-volume loop is normal. No significant bronchodilator response is identified. Total lung capacity is normal. Residual volume is in proportion. Diffusing capacity is normal. Hemoglobin is reduced at 10.6. Airway resistance and conductance are normal. IMPRESSION: 1. Normal pulmonary function studies. 2. Underlying anemia. Please correlate clinically. MTDD
== END ==
LOC: M CARPUL 11:21
PROVIDERS: ATTEND Family Medicine
DX: R05.8 Other specified cough (principal)

== ENCOUNTER → 2021-02-17 | Outpatient (CLI) | payer OTHER ==
[~2021-02-17] MED LIST changes: -DICY20TA11 PO; +DICY20TA20 PO; +FAMO20TA PO; -FLUC150T PO; +FLUC150T9 PO; +IBUP1TAB7 PO; +OXYC1TAB23 PO; +SUCR1ORA PO; +TRAZ-189 PO
== END ==
LOC: M WHC 08:31
PROVIDERS: ATTEND Nurse Practitioner Women's Health
DX: Z12.31 Encounter for screening mammogram for malignant neoplasm of breast (principal)

== ENCOUNTER → 2021-02-17 | Outpatient (REF) | payer OTHER | LOC: M SFHCWAGY 11:44 | PROVIDERS: ATTEND Nurse Practitioner Women's Health | DX: Z12.4 Encounter for screening for malignant neoplasm of cervix (principal); Z01.419 Encounter for gynecological examination (general) (routine) without abnormal findings ==

== ENCOUNTER → 2021-04-15 | Outpatient (CLI) | payer OTHER ==
[~2021-04-15] MED LIST changes: -FAMO20TA PO; +FLUC150T PO; -FLUC150T9 PO; -IBUP1TAB7 PO; -OXYC1TAB23 PO; -SUCR1ORA PO; -TRAZ-189 PO
[2021-04-15 18:03] LABS: BASO % 0.4 % (0.0-1.0); EOS # 0.1 10^3/uL (0.0-0.5); EOS % 1.1 % (0.0-3.0); HEMATOCRIT 39.6 % (36.0-47.0); HEMOGLOBIN 12.8 g/dl (12.0-15.5); LYMPH # 2.5 10^3/uL (1.5-5.0); LYMPH % 22.6 % (24.0-44.0); MEAN CORPUSCULAR HEMOGLOBIN 30.1 pg (27.0-33.0); MEAN CORPUSCULAR HGB CONC 32.3 g/dl (32.0-36.5); MEAN CORPUSCULAR VOLUME 93.2 fl (80.0-96.0); MONO # 0.9 10^3/uL (0.0-0.8); NEUTROPHILS # 7.5 10^3/uL (1.5-8.5); NEUTROPHILS % 67.4 % (36.0-66.0); PLATELET COUNT, AUTOMATED 409 10^3/uL (150-450); RED BLOOD COUNT 4.25 10^6/uL (4.00-5.40); WHITE BLOOD COUNT 11.1 10^3/uL (4.0-10.0)
[2021-04-15 18:23] LABS: ALBUMIN 3.5 GM/DL (3.2-5.2); ALT/SGPT 31 U/L (12-78); BILIRUBIN,DIRECT 0.1 MG/DL (0.0-0.2); BILIRUBIN,TOTAL 0.3 MG/DL (0.2-1.0); BLOOD UREA NITROGEN 17 MG/DL (7-18); CREATININE FOR GFR 0.71 MG/DL (0.55-1.30); GLOMERULAR FILTRATION RATE > 60.0 (>58); TOTAL PROTEIN 7.2 GM/DL (6.4-8.2)
== END ==
LOC: M LAB 17:08
PROVIDERS: ATTEND Internal Medicine Gastroenterology
DX: R14.0 Abdominal distension (gaseous) (principal)

== ENCOUNTER → 2021-04-16 | Outpatient (REF) | payer OTHER | LOC: M LAB REF 12:24 | PROVIDERS: ATTEND Internal Medicine Gastroenterology | DX: R14.0 Abdominal distension (gaseous) (principal) ==

== ENCOUNTER → 2021-04-27 | Outpatient (CLI) | payer OTHER ==
[~2021-04-27] MED LIST changes: +FAMO20TA PO; -FLUC150T PO; +FLUC150T9 PO; +SUCR1ORA PO; +TRAZ-189 PO
== END ==
LOC: M LABSMTC 10:29
PROVIDERS: ATTEND Anesthesiology
DX: Z01.818 Encounter for other preprocedural examination (principal); Z11.52 Encounter for screening for COVID-19

== ENCOUNTER 2021-05-01 07:43 | Day surgery (SDC) | payer OTHER ==
[~2021-05-01] VITALS: Ht 170.2 cm; Wt 104.3 kg
[~2021-05-01 07:43] MED LIST changes: +LR 1,000 ML IV ONE
[2021-05-01] MEDS ORDERED: propofoL 200 MG/20 ML VIAL As Ordered ONE (08:36)
[2021-05-01] MEDS ORDERED: LIDOCAINE 2% 100MG/5ML SDV (FOR ANES.) As Ordered ONE ×2 (08:36→16:11)
[2021-05-01] MEDS ORDERED: MIDAZOLAM INJ 2MG/2ML VIAL (J2250 PER 1MG) As Ordered ONE (08:37)
[2021-05-01] MEDS ORDERED: ROCURONIUM BROMIDE 50 MG/5 ML VIAL As Ordered ONE ×3 (08:37→16:45)
[2021-05-01] MEDS ORDERED: fentaNYL 100 MCG/2 ML INJECTION As Ordered ONE ×2 (08:37→16:45)
[2021-05-01] MEDS ORDERED: dexameTHASONE 4 MG/ML 1ML VIAL (J1100 PER 1MG) As Ordered ONE (08:38)
[2021-05-01] MEDS ORDERED: ONDANSETRON 4MG/2ML VIAL As Ordered ONE (08:38)
[2021-05-01] MEDS ORDERED: SUGAMMADEX SODIUM 500 MG/5 ML VIAL (BRIDION) As Ordered ONE (08:57)
[2021-05-01] MEDS ORDERED: KETOROLAC 60MG 2ML VIAL As Ordered ONE (08:57)
[2021-05-01 09:11] LABS: HEMATOCRIT 38.5 % (36.0-47.0); HEMOGLOBIN 12.6 g/dl (12.0-15.5); MEAN CORPUSCULAR HEMOGLOBIN 31.3 pg (27.0-33.0); MEAN CORPUSCULAR HGB CONC 32.7 g/dl (32.0-36.5); MEAN CORPUSCULAR VOLUME 95.8 fl (80.0-96.0); PLATELET COUNT, AUTOMATED 422 10^3/uL (150-450); RED BLOOD COUNT 4.02 10^6/uL (4.00-5.40); WHITE BLOOD COUNT 7.6 10^3/uL (4.0-10.0)
[2021-05-01] MEDS ORDERED: BUPIVACAINE HCL 0.25% 30ML VIAL As Ordered ONE ×2 (10:40→15:54)
[2021-05-01] MEDS ORDERED: ACETAMINOPHEN 1000MG 100ML IV BTL (OFIRMEV) (J0131 PER 10MG) As Ordered ONE (12:52)
[2021-05-01] MEDS ORDERED: IBUP1TAB7 PO (16:18)
[2021-05-01] MEDS ORDERED: OXYC1TAB23 PO (16:20)
[2021-05-01] MEDS ORDERED: fentaNYL 100 MCG/2 ML INJECTION IV PRN (17:50)
[2021-05-01] MEDS ORDERED: ONDANSETRON 4MG/2ML VIAL IV PRN (17:50)
[2021-05-01] MEDS ORDERED: oxyCODONE 5MG TAB PO PRN (17:50)
[2021-05-01] MEDS ORDERED: LR 1,000 ML IV SCH (17:50)
[2021-05-01 18:40] VITALS: BP 141/85
[2021-05-01] MEDS ORDERED: KETOROLAC 30 MG/ML 1ML VIAL IV SCH (21:00)
[2021-05-02] MEDS ORDERED: LACRILUBE (AKWA TEARS) OPHTH OINT 3.5 GM As Ordered ONE (03:32)
[2021-05-02] MEDS ORDERED: fentaNYL 250 MCG/5 ML INJECTION As Ordered ONE (03:55)
[2021-05-02] MEDS ORDERED: dexameTHASONE 4 MG/ML 1ML VIAL (J1100 PER 1MG) As Ordered ONE (03:56)
[2021-05-02] MEDS ORDERED: ROCURONIUM BROMIDE 50 MG/5 ML VIAL As Ordered ONE (03:58)
[2021-05-02] MEDS ORDERED: ACETAMINOPHEN 1000MG 100ML IV BTL (OFIRMEV) (J0131 PER 10MG) As Ordered ONE (06:04)
[2021-05-02] MEDS ORDERED: HYDROmorphone HCL 2MG/ML 1ML VIAL As Ordered ONE (06:06)
[2021-05-02] MEDS ORDERED: SUGAMMADEX SODIUM 500 MG/5 ML VIAL (BRIDION) As Ordered ONE (06:08)
[2021-05-02] MEDS ORDERED: KETOROLAC 60MG 2ML VIAL As Ordered ONE (06:09)
== END 2021-05-01 18:50 | disposition home or self-care (01) ==
LOC: M SDC 07:43
PROVIDERS: ATTEND Obstetrics & Gynecology
DX: N93.9 Abnormal uterine and vaginal bleeding, unspecified (principal); Z30.2 Encounter for sterilization; K58.9 Irritable bowel syndrome, unspecified; K21.9 Gastro-esophageal reflux disease without esophagitis; F41.9 Anxiety disorder, unspecified; F32.9 Major depressive disorder, single episode, unspecified; G43.909 Migraine, unspecified, not intractable, without status migrainosus; Z98.84 Bariatric surgery status; Z79.899 Other long term (current) drug therapy; Z79.3 Long term (current) use of hormonal contraceptives
CPT/HCPCS: 36415; 58563; 58661; 81025; 85027; 86850; 86900; 86901; 88302; 88305; J0131; J1100; J1885; J2250; J2405; J3010

== ENCOUNTER → 2022-01-14 | Outpatient (CLI) | payer OTHER ==
[~2022-01-14] MED LIST changes: -D31000TA2 PO; +IBUP1TAB7 PO; -LR 1,000 ML IV ONE; +OXYC1TAB23 PO; +VITA100093 PO
== END ==
LOC: M RAD 16:21
PROVIDERS: ATTEND Family Medicine
DX: M79.672 Pain in left foot (principal)

== ENCOUNTER → 2022-08-03 | Outpatient (CLI) | payer OTHER ==
[~2022-08-03] MED LIST changes: +MONT-5 PO; -SING10TA32 PO
== END ==
LOC: M WHC 10:05
PROVIDERS: ATTEND Obstetrics & Gynecology
DX: Z12.31 Encounter for screening mammogram for malignant neoplasm of breast (principal)

== ENCOUNTER → 2022-08-03 | Outpatient (REF) | payer OTHER | LOC: M PLALAB 11:19 | PROVIDERS: ATTEND Obstetrics & Gynecology | DX: Z12.4 Encounter for screening for malignant neoplasm of cervix (principal) ==

== ENCOUNTER 2022-11-10 09:08 | Day surgery (SDC) | payer OTHER ==
[~2022-11-10] VITALS: Ht 170.2 cm; Wt 103.0 kg
[~2022-11-10 09:08] MED LIST changes: +CETI10CA13 PO; +FLON1SPR; +NS 1,000 ML IV ONE; +PANT40TA29 PO
[2022-11-10] MEDS ORDERED: LIDOCAINE 2% 100MG/5ML SDV (FOR ANES.) As Ordered ONE (09:40)
[2022-11-10] MEDS ORDERED: propofoL 200 MG/20 ML VIAL As Ordered ONE (09:40)
[2022-11-10 11:41] VITALS: BP 136/78; O2SAT 100
== END 2022-11-10 11:46 | disposition home or self-care (01) ==
LOC: M OPP 09:08
PROVIDERS: ATTEND Internal Medicine Gastroenterology
DX: Z12.11 Encounter for screening for malignant neoplasm of colon (principal); K64.4 Residual hemorrhoidal skin tags; K64.8 Other hemorrhoids; Z79.1 Long term (current) use of non-steroidal anti-inflammatories (NSAID); Z79.52 Long term (current) use of systemic steroids; Z79.891 Long term (current) use of opiate analgesic; Z79.899 Other long term (current) drug therapy

== ENCOUNTER → 2023-04-24 | Outpatient (REF) | payer OTHER ==
[~2023-04-24] MED LIST changes: -NS 1,000 ML IV ONE
[2023-04-24 18:55] LABS: RSV AMPLIFICATION NEGATIVE (NEGATIVE)
== END ==
LOC: M LAB REF 17:55
PROVIDERS: ATTEND Physician Assistant
DX: J06.9 Acute upper respiratory infection, unspecified (principal)

== ENCOUNTER → 2023-04-28 | Outpatient (CLI) | payer OTHER | LOC: M RAD 11:10 | PROVIDERS: ATTEND Family Medicine | DX: M25.551 Pain in right hip (principal); M79.604 Pain in right leg ==

== ENCOUNTER → 2023-08-11 | Outpatient (CLI) | payer OTHER ==
[2023-08-11 16:13] LABS: BASO % 0.3 % (0.0-1.0); EOS # 0.3 10^3/uL (0.0-0.5); EOS % 3.2 % (0.0-3.0); HEMATOCRIT 38.3 % (36.0-47.0); HEMOGLOBIN 12.6 g/dl (12.0-15.5); LYMPH # 1.8 10^3/uL (1.5-5.0); LYMPH % 20.7 % (24.0-44.0); MEAN CORPUSCULAR HEMOGLOBIN 32.1 pg (27.0-33.0); MEAN CORPUSCULAR HGB CONC 32.9 g/dl (32.0-36.5); MEAN CORPUSCULAR VOLUME 97.5 fl (80.0-96.0); MONO # 0.7 10^3/uL (0.0-0.8); MONO % 8.3 % (2.0-8.0); NEUTROPHILS # 5.9 10^3/uL (1.5-8.5); PLATELET COUNT, AUTOMATED 360 10^3/uL (150-450); RED BLOOD COUNT 3.93 10^6/uL (4.00-5.40); WHITE BLOOD COUNT 8.8 10^3/uL (4.0-10.0)
[2023-08-11 16:46] LABS: ALBUMIN 3.6 G/DL (3.2-5.2); ALKALINE PHOSPHATASE 98 U/L (46-116); ALT/SGPT 29 U/L (7.0-40); AST/SGOT 18 U/L (<34); BILIRUBIN,TOTAL 0.5 MG/DL (0.3-1.2); BLOOD UREA NITROGEN 14 MG/DL (9-23); CALCIUM LEVEL 9.1 MG/DL (8.5-10.1); CARBON DIOXIDE LEVEL 25 MMOL/L (20-31); CHLORIDE LEVEL 107 MMOL/L (98-107); CREATININE FOR GFR 0.71 MG/DL (0.55-1.30); GLOMERULAR FILTRATION RATE > 60.0 (>58); GLUCOSE, FASTING 89 MG/DL (60-100); POTASSIUM SERUM 4.1 MMOL/L (3.5-5.1); SODIUM LEVEL 138 MMOL/L (136-145); TOTAL PROTEIN 6.5 G/DL (5.7-8.2)
== END ==
LOC: M LAB 15:55
PROVIDERS: ATTEND Psychiatry & Neurology Neurology
DX: R51.9 Headache, unspecified (principal)

== ENCOUNTER → 2023-10-23 | Outpatient (CLI) | payer OTHER ==
[~2023-10-23] MED LIST changes: +ESOM1CAP20 PO; -ESOM1CAP5 PO; +FLUO-365 PO; -FLUO20CA22 PO; +ONDA-282 PO; -ONDA4TAB6 PO
== END ==
LOC: M LAB 11:05
PROVIDERS: ATTEND Nurse Practitioner Family
DX: R89.1 Abnormal level of hormones in specimens from other organs, systems and tissues (principal)

== ENCOUNTER → 2024-01-09 | Outpatient (REF) | payer OTHER ==
[~2024-01-09] MED LIST changes: +FLUO-290; -TROK1CAP5 PO; +[UNRECOGNIZED DRUG - CODE] PO
== END ==
LOC: M SFHCDERM 17:30
PROVIDERS: ATTEND Physician Assistant
DX: Z48.02 Encounter for removal of sutures (principal)

== ENCOUNTER → 2025-02-20 | Outpatient (CLI) | payer OTHER ==
[~2025-02-20] MED LIST changes: +ISOVUE-370 76% 100 ML VIAL ONE; +LISD10CA; +LOSA25TA13 PO; +TIRZ5PEN3; +TOPI-256 PO; -TOPI25TA10 PO
== END ==
LOC: M PLAIMG 10:04
DX: D50.9 Iron deficiency anemia, unspecified (principal); E53.8 Deficiency of other specified B group vitamins